=== PATIENT | male | born 2000 | race African-American/Black ===

== ENCOUNTER 2020-12-09 13:43 | Emergency (ER) | payer OTHER ==
[~2020-12-09] VITALS: Ht 177.8 cm; Wt 63.5 kg
[2020-12-09] MEDS ORDERED: BACITRACIN ZINC 15 GM OINT TOP SCH (15:15)
== END 2020-12-09 15:40 | disposition home or self-care (01) ==
LOC: FSED 14:29
DX: T23.202A Burn of second degree of left hand, unspecified site, initial encounter (principal); T22.212A Burn of second degree of left forearm, initial encounter; T31.0 Burns involving less than 10% of body surface; X10.2XXA Contact with fats and cooking oils, initial encounter
CPT/HCPCS: 99283